=== PATIENT | female | born 1970 | race Two or more races ===

== ENCOUNTER → 2025-07-25 | Emergency (ER) | payer BC ==
[~2025-07-25] VITALS: Ht 154.9 cm; Wt 59.8 kg
[2025-07-25 17:24] VITALS: BP 150/83; PULSE 97; RESP 18; TEMP 98.1; O2SAT 99
== END | disposition left against medical advice (07) ==
LOC: ER 17:21
DX: S61.219A Laceration without foreign body of unspecified finger without damage to nail, initial encounter (principal); Z53.21 Procedure and treatment not carried out due to patient leaving prior to being seen by health care provider; X58.XXXA Exposure to other specified factors, initial encounter; Y93.89 Activity, other specified; Y92.89 Other specified places as the place of occurrence of the external cause; Y99.8 Other external cause status